=== PATIENT | male | born 1965 | race Caucasian/White ===

== ENCOUNTER 2024-01-30 05:57 | Emergency (ER) | payer OTHER, SELFPAY ==
[2024-01-30] VITALS (10 sets, daily range): BP systolic 137–165; BP diastolic 67–78; PULSE 52–84; RESP 12–22; TEMP 36.5–36.8; O2SAT 95–100; BMI 23.1; BMI 21.9
--- NOTE | 2024-01-30 | ECG_ITS ---
Test Reason : CHEST PAIN Blood Pressure : / mmHG Vent. Rate : 078 BPM Atrial Rate : 078 BPM P-R Int : 134 ms QRS Dur : 108 ms QT Int : 386 ms P-R-T Axes : 065 074 260 degrees QTc Int : 440 ms Sinus rhythm with occasional Premature ventricular complexes and Premature atrial complexes Cannot rule out Anterior infarct , age undetermined Marked ST abnormality, possible inferior subendocardial injury - can also be from LVH. Abnormal ECG No previous ECGs available Referred By: Generic ED Physician Electronically Signed By:MILLY JEONG
--- NOTE | ~2024-01-30 | XR_ITS ---
EXAMINATION: XR CHEST CLINICAL INFORMATION: Chest pain. COMPARISON: None available. TECHNIQUE: Frontal view of the chest was obtained. FINDINGS: The cardiomediastinal silhouette is within normal limits. There appears to be minimal right middle lobe scarring. Lungs are otherwise clear. There are significant pleural effusions. The bony structures and the soft tissues are unremarkable. XR/XR chest 1V IMPRESSION: No acute cardiopulmonary disease. Electronically signed by: Brady Barboza MD 01/30/2024 07:08 AM EDT
--- NOTE | 2024-01-30 06:09 | ED.CHESTPAIN ---
HPI - Chest Pain General Chief Complaint: Chest Pain Stated Complaint: CHEST PAIN Time Seen by Provider: 01/30/24 06:00 Source: patient and EMS Mode of arrival: EMS Limitations: no limitations History of Present Illness HPI narrative: This is a very pleasant 58 years old male visiting from history presented to the emergency department with a chief complaint of chest pain. He has history of CAD he has a stent of the LAD and right coronary artery he also has history of kidney transplant, hypertension hypercholesterolemia. He states that he has been having chest pain on and off since last night at 21:00 described as a pressure without radiation, he took few nitro and aspirin. He received by the ambulance about 70 mcg of fentanyl. His pain is better month no completely gone. MD complaint: chest pain Pertinent past history: coronary artery disease, prior [employer] and [employer] Onset (ago): day(s) (8) Prior episodes: Yes Onset: during rest Pain location: substernal and left chest Pain radiation: none Quality: heaviness Relieving factors: nothing Exacerbating factors: nothing Risk Factors Coronary artery disease risk factors: diabetes and hypertension Related Data Home Medications ?Medication ?Instructions ?Recorded ?Confirmed amlodipine 5 mg tablet 5 mg PO DAILY 01/30/24 01/30/24 aspirin 81 mg tablet,delayed 81 mg PO DAILY 01/30/24 01/30/24 release carvedilol 3.125 mg tablet 3.125 mg PO BID 01/30/24 01/30/24 diphenhydramine HCl 25 mg capsule 25 mg PO BEDTIME PRN Allergy 01/30/24 01/30/24 (Benadryl) Symptoms famotidine 20 mg tablet 20 mg PO DAILY 01/30/24 01/30/24 insulin glargine 100 unit/mL 18 unit subcut DAILY 01/30/24 01/30/24 subcutaneous solution (Lantus U-100 Insulin) insulin lispro 100 unit/mL 3 - 5 sliding scale dose subcut 01/30/24 01/30/24 subcutaneous solution (Humalog TIDWM U-100 Insulin) losartan 50 mg tablet 50 mg PO DAILY 01/30/24 01/30/24 mycophenolate sodium 360 mg 360 mg PO DAILY 01/30/24 01/30/24 tablet,delayed release nitroglycerin 0.4 mg sublingual 0.4 mg sublingual Q5M PRN Chest 01/30/24 01/30/24 tablet Pain paroxetine HCl 20 mg tablet 20 mg PO DAILY 01/30/24 01/30/24 prednisone 5 mg tablet 5 mg PO DAILY 01/30/24 01/30/24 tacrolimus 1 mg capsule, 1 mg PO BEDTIME 01/30/24 01/30/24 immediate-release tacrolimus 1 mg capsule, 2 mg PO DAILY 01/30/24 01/30/24 immediate-release Allergies Allergy/AdvReac Type Severity Reaction Status Date / Time Sulfa (Sulfonamide Allergy Unknown Verified 01/30/24 06:11 Antibiotics) Review of Systems ENT: Reports system reviewed and no additional complaints, except as documented Cardiovascular: Cardiovascular: Reports no additional cardiovascular complaints Respiratory: Respiratory: Reports no additional respiratory complaints Musculoskeletal: Musculoskeletal: Reports no additional musculoskeletal complaints [facility] Past Medical History [facility] Narrative: CAD, stent of the right coronary and LAD. Kidney transplant 10 years ago. Hypertension, diabetes hypercholesterolemia Medical History (Updated 02/01/24 @ 00:02 by Nicci Orellana) Coronary artery disease Surgical History (Updated 01/30/24 @ 09:54 by Shawn Fischer MD) Kidney replaced by transplant Social History Social History (Updated 01/30/24 @ 06:12 by Jose Antonio Melara MD) Patient Tobacco Use Status: Never used Tobacco Physical Exam Vital Signs: Vital Signs: Last Vital Signs Temp 97.9 F 01/31/24 05:52 Pulse 70 01/31/24 05:52 Resp 20 01/31/24 05:52 BP 132/62 01/31/24 05:52 Pulse Ox 96 01/31/24 05:52 O2 Del Method Room Air 01/31/24 05:52 BMI result Body Mass Index 21.9 He looks well is not toxic-appearing Const: General: cooperative, comfortable and no acute distress Nutritional Appearance: well nourished Orientation/consciousness: patient oriented x3 HEENT: Head: Yes normal to inspection Face and sinus: Yes normal facial exam Mouth: Normal oral and palatal mucosa present Neck: Neck: Yes normal visual inspection Chest: Chest palpation & inspection: normal inspection of the chest Resp: Effort & Inspection: normal respiratory effort Auscultation: clear to auscultation bilaterally Cardio: Jugular venous distension: no JVD Rate: regular rate Rhythm: regular rhythm GI: Inspection: Yes normal to inspection Palpation (GI): Soft to palpation, not firm, nontender and no guarding Auscultation: normal bowel sounds Skin: General skin exam: no rashes or lesions noted, elasticity normal and turgor normal Lesions: no lesions Rashes: no rashes Trauma: no lacerations or abrasions Neuro: General: patient oriented x3 Cranial nerves: Yes CN's II-XII intact bilaterally Extrem: General: Yes normal to inspection and Yes capillary refill normal Course Reevaluation(s) Reevaluation #1: doing better seen by custom bike builder in ED,spoke with hospitalist Time: 09:54 Reevaluation #2: Patient was accepted in transfer to [facility] by Dr. Goldstein waiting for bed Time: 13:09 Reevaluation #3: I assumed care of this patient when I came on this evening. The patient had presented on the morning of SundayJanuary 29 complaining of chest discomfort. He has a history of coronary disease and stents. He also is a renal transplant patient. The patient is from [place]. He and his have been driving around the [facility] during. He had developed pain at around 21:00 on Sunday evening before coming here yesterday morning at around 05:00. The patient had had an initial troponin of 19.6 at 06:15 and then a troponin of 123 at 09:42. His EKG showed ST abnormalities potentially consistent with inferior subendocardial injury or LVH. His pain resolved after receiving nitroglycerin and fentanyl. He was placed on a heparin drip. The plan was to transfer him to [facility] for further care. The patient has been accepted in transfer and was expected to go fairly soon but there was a lack of beds and so the patient was kept in the emergency room here. He was on a heparin drip. When I 1st saw the patient he was pain-free. He has been resting comfortably. Sometime after that he was found to be hypoglycemic (he had received his usual dose of insulin earlier in the evening). He was given food to eat as well as some IV glucose. Early this morning the patient complains of return of his chest pain that he describes as his anginal pain. We obtained an EKG at 03:25 which for the most part looks better than his previous EKG although the lead in V6 shows biphasic T-waves. The patient will be given nitroglycerin and fentanyl. Time: 03:42 Additional Reevaluation(s): Although the patient's chest pain resolved with the additional nitroglycerin paste and a dose of fentanyl his troponin is gone up to 1500 and his EKG shows a change in the angle of the J-point in V4. I re-contacted [facility] and spoke to the covering custom bike builder Dr. Chadwikc. They have arranged a bed for the patient and the patient will be transferred by ambulance. Medications Administered Discontinued Medications Generic Name Dose Route Start Last Admin Trade Name Sara PRN Reason Stop Dose Admin Acetaminophen 975 mg 01/31/24 05:00 01/31/24 05:06 Acetaminophen 325 Mg Tablet PO 01/31/24 05:01 975 mg ONCE ONE Administration Aspirin 324 mg 01/30/24 10:46 01/30/24 10:59 Aspirin 81 Mg Tab.Chew PO 01/30/24 10:47 324 mg ONCE ONE Administration Atorvastatin Calcium 40 mg 01/30/24 10:46 01/30/24 10:58 Atorvastatin Calcium 40 Mg Tablet PO 01/30/24 10:47 40 mg ONCE ONE Administration Carvedilol 3.125 mg 01/30/24 21:00 01/30/24 21:20 Carvedilol 3.125 Mg Tablet PO Not Given BID CROW Protocol Fentanyl 25 mcg 01/30/24 06:15 01/30/24 06:47 Fentanyl Citrate/Pf 100 Mcg/2 Ml Vial IVPUSH 01/30/24 06:16 25 mcg ONCE ONE Administration Protocol Fentanyl 25 mcg 01/30/24 08:25 01/30/24 08:50 Fentanyl Citrate/Pf 100 Mcg/2 Ml Vial IVPUSH 01/30/24 08:26 25 mcg ONCE ONE Administration Protocol Fentanyl 25 mcg 01/31/24 03:37 01/31/24 03:41 Fentanyl Citrate/Pf 100 Mcg/2 Ml Vial IVPUSH 01/31/24 03:38 25 mcg ONCE ONE Administration Protocol Glucose 15 gm 01/31/24 00:35 01/31/24 00:54 Glucose Gel 15 Gm Gel..Gram. PO 01/31/24 00:36 Not Given STAT STA Heparin Sodium (Porcine) 4,000 unit 01/30/24 09:15 01/30/24 09:20 Heparin Sodium,Porcine 5,000 Unit/Ml Vial IVPUSH 01/30/24 09:16 4,000 unit ONCE ONE Administration Heparin Sodium/Sodium Chloride 25,000 unit in 250 mls @ 0 mls/hr 01/30/24 08:45 01/31/24 05:35 Heparin Sodium,Porcine/1/2ns IVCONT 0 units/kg/hr .Q0M [facility] 0 mls/hr Titration Protocol Per Protocol Dextrose 250 mls @ 750 mls/hr 01/31/24 00:35 01/31/24 01:05 D10 IV 01/31/24 00:54 Infused Q15M STA Infusion Insulin Human Lispro 0 unit 01/30/24 16:30 01/30/24 21:14 Insulin Lispro 100 Unit/Ml 3 Ml Vial SUBCUT Not Given [facility] Protocol Insulin Human Lispro 0 unit 01/30/24 21:00 01/30/24 21:20 Insulin Lispro 100 Unit/Ml 3 Ml Vial SUBCUT 6 unit QIDAS [facility] Administration Protocol Metoprolol Tartrate 25 mg 01/30/24 10:46 01/30/24 10:58 Metoprolol Tartrate 25 Mg Tablet PO 01/30/24 10:47 25 mg ONCE ONE Administration Protocol Nitroglycerin 0.4 mg 01/30/24 06:15 01/30/24 06:46 Nitroglycerin 0.4 Mg Tab.Subl SUBLINGUAL 01/30/24 06:16 0.4 mg ONCE ONE Administration Nitroglycerin 1 inch 01/31/24 03:32 01/31/24 03:35 Nitroglycerin 2 % Oint 1 Gm Packet TRANSDERMA 01/31/24 03:33 1 inch ONCE ONE Administration Tacrolimus 1 mg 01/30/24 21:00 01/30/24 21:21 Tacrolimus 1 Mg Capsule PO 1 mg BEDTIME [facility] Administration Medical Decision Making Medical Decision Making [facility] Narrative: Patient presented with chest pain he has history of CAD with LAD stent and right coronary stent, will do electrocardiogram, troponin, chest x-ray Differential Diagnosis Differential Diagnoses: The differential diagnosis associated with the presentation includes ACS/pericarditis/STEMI Admission/Observation Consideration of admission/observation: Escalation of care including admission/observation considered Lab Data 01/31/24 05:04 01/30/24 06:15 Labs: Lab Results 01/30/24 01/30/24 01/30/24 Range/Units 06:15 08:59 09:42 WBC 4.5 L 4.7 L (4.8-10.8) X10*3/uL RBC 3.06 L 3.11 L (4.60-5.80) X10*6/uL Hgb 8.7 L 8.9 L (14.0-18.0) g/dl Hct 27.3 L 27.6 L (42.0-52.0) % MCV 89.2 88.7 (80.0-98.0) fL MCH 28.4 28.6 (27.0-33.0) pg MCHC 31.9 32.2 (31.0-36.0) g/dl RDW 13.0 12.9 (11.0-16.0) % Plt Count 132 L 133 L (160-400) X10*3/uL MPV 10.4 10.9 (9.4-12.4) fL Immature Gran % (Auto) 0.2 (0.0-0.4) % Neut % (Auto) 72.4 (45-73) % Lymph % (Auto) 10.5 L (20-40) % Swisher % (Auto) 13.8 H (2-11) % Eos % (Auto) 2.9 (0-4) % Baso % (Auto) 0.2 (0-2) % Lymph # (Auto) 0.5 L (1.2-4.9) X10*3/uL Swisher # (Auto) 0.6 (0.1-1.2) X10*3/uL Eos # (Auto) 0.1 (0.0-0.4) X10*3/uL Baso # (Auto) 0.0 (0.0-0.2) X10*3/uL Abs Immat Gran (auto) 0.01 (0.00-0.03) X10*3/uL Absolute Neuts (auto) 3.3 (2.0-8.3) x10*3/uL Absolute Nucleated RBC 0.000 0.000 (0.0-0.012) X10*3/uL Nucleated RBC % (auto) 0.0 0.0 (0.0-0.2) /100WBC PT 11.9 11.8 (10.9-12.4) SEC INR 1.0 1.0 (0.9-1.1) aPTT Heparin Protocol 30.1 L (53-77.9) SEC Sodium 138 (135-145) mmol/L Potassium 4.9 (3.3-5.1) mmol/L Chloride 110 H (96-108) mmol/L Carbon Dioxide 22 (22-29) mmol/L Anion Gap 11 L (12-20) BUN 52 H (9-16) mg/dL Creatinine 2.62 H (0.5-1.4) mg/dL Estim Creat Clear Calc 32.1 Estimated GFR 25 POC Glucose (60-115) mg/dL Random Glucose 283 H (60-115) mg/dL Calcium 8.5 (8.4-10.2) mg/dL Total Bilirubin 0.2 (0.0-1.0) mg/dL AST 16 (5-37) U/L ALT 14 (0-40) U/L Alkaline Phosphatase 53 (39-117) U/L Troponin I High Sens 19.6 123.4 H* D (<3.5-35.0) ng/L Total Protein 5.4 L (6.5-8.0) g/dL Albumin 3.4 L (3.5-5.0) g/dL 01/30/24 01/30/24 01/30/24 Range/Units 10:52 16:26 19:26 WBC (4.8-10.8) X10*3/uL RBC (4.60-5.80) X10*6/uL Hgb (14.0-18.0) g/dl Hct (42.0-52.0) % MCV (80.0-98.0) fL MCH (27.0-33.0) pg MCHC (31.0-36.0) g/dl RDW (11.0-16.0) % Plt Count (160-400) X10*3/uL MPV (9.4-12.4) fL Immature Gran % (Auto) (0.0-0.4) % Neut % (Auto) (45-73) % Lymph % (Auto) (20-40) % Swisher % (Auto) (2-11) % Eos % (Auto) (0-4) % Baso % (Auto) (0-2) % Lymph # (Auto) (1.2-4.9) X10*3/uL Swisher # (Auto) (0.1-1.2) X10*3/uL Eos # (Auto) (0.0-0.4) X10*3/uL Baso # (Auto) (0.0-0.2) X10*3/uL Abs Immat Gran (auto) (0.00-0.03) X10*3/uL Absolute Neuts (auto) (2.0-8.3) x10*3/uL Absolute Nucleated RBC (0.0-0.012) X10*3/uL Nucleated RBC % (auto) (0.0-0.2) /100WBC PT (10.9-12.4) SEC INR (0.9-1.1) aPTT Heparin Protocol 87.5 H D (53-77.9) SEC Sodium (135-145) mmol/L Potassium (3.3-5.1) mmol/L Chloride (96-108) mmol/L Carbon Dioxide (22-29) mmol/L Anion Gap (12-20) BUN (9-16) mg/dL Creatinine (0.5-1.4) mg/dL Estim Creat Clear Calc Estimated GFR POC Glucose 171 H 349 H (60-115) mg/dL Random Glucose (60-115) mg/dL Calcium (8.4-10.2) mg/dL Total Bilirubin (0.0-1.0) mg/dL AST (5-37) U/L ALT (0-40) U/L Alkaline Phosphatase (39-117) U/L Troponin I High Sens (<3.5-35.0) ng/L Total Protein (6.5-8.0) g/dL Albumin (3.5-5.0) g/dL 01/30/24 01/30/24 01/31/24 Range/Units 21:05 22:35 00:17 WBC (4.8-10.8) X10*3/uL RBC (4.60-5.80) X10*6/uL Hgb (14.0-18.0) g/dl Hct (42.0-52.0) % MCV (80.0-98.0) fL MCH (27.0-33.0) pg MCHC (31.0-36.0) g/dl RDW (11.0-16.0) % Plt Count (160-400) X10*3/uL MPV (9.4-12.4) fL Immature Gran % (Auto) (0.0-0.4) % Neut % (Auto) (45-73) % Lymph % (Auto) (20-40) % Swisher % (Auto) (2-11) % Eos % (Auto) (0-4) % Baso % (Auto) (0-2) % Lymph # (Auto) (1.2-4.9) X10*3/uL Swisher # (Auto) (0.1-1.2) X10*3/uL Eos # (Auto) (0.0-0.4) X10*3/uL Baso # (Auto) (0.0-0.2) X10*3/uL Abs Immat Gran (auto) (0.00-0.03) X10*3/uL Absolute Neuts (auto) (2.0-8.3) x10*3/uL Absolute Nucleated RBC (0.0-0.012) X10*3/uL Nucleated RBC % (auto) (0.0-0.2) /100WBC PT (10.9-12.4) SEC INR (0.9-1.1) aPTT Heparin Protocol 77.0 (53-77.9) SEC Sodium (135-145) mmol/L Potassium (3.3-5.1) mmol/L Chloride (96-108) mmol/L Carbon Dioxide (22-29) mmol/L Anion Gap (12-20) BUN (9-16) mg/dL Creatinine (0.5-1.4) mg/dL Estim Creat Clear Calc Estimated GFR POC Glucose 292 H 44 L* (60-115) mg/dL Random Glucose (60-115) mg/dL Calcium (8.4-10.2) mg/dL Total Bilirubin (0.0-1.0) mg/dL AST (5-37) U/L ALT (0-40) U/L Alkaline Phosphatase (39-117) U/L Troponin I High Sens (<3.5-35.0) ng/L Total Protein (6.5-8.0) g/dL Albumin (3.5-5.0) g/dL 01/31/24 01/31/24 01/31/24 Range/Units 00:32 00:49 01:38 WBC (4.8-10.8) X10*3/uL RBC (4.60-5.80) X10*6/uL Hgb (14.0-18.0) g/dl Hct (42.0-52.0) % MCV (80.0-98.0) fL MCH (27.0-33.0) pg MCHC (31.0-36.0) g/dl RDW (11.0-16.0) % Plt Count (160-400) X10*3/uL MPV (9.4-12.4) fL Immature Gran % (Auto) (0.0-0.4) % Neut % (Auto) (45-73) % Lymph % (Auto) (20-40) % Swisher % (Auto) (2-11) % Eos % (Auto) (0-4) % Baso % (Auto) (0-2) % Lymph # (Auto) (1.2-4.9) X10*3/uL Swisher # (Auto) (0.1-1.2) X10*3/uL Eos # (Auto) (0.0-0.4) X10*3/uL Baso # (Auto) (0.0-0.2) X10*3/uL Abs Immat Gran (auto) (0.00-0.03) X10*3/uL Absolute Neuts (auto) (2.0-8.3) x10*3/uL Absolute Nucleated RBC (0.0-0.012) X10*3/uL Nucleated RBC % (auto) (0.0-0.2) /100WBC PT (10.9-12.4) SEC INR (0.9-1.1) aPTT Heparin Protocol (53-77.9) SEC Sodium (135-145) mmol/L Potassium (3.3-5.1) mmol/L Chloride (96-108) mmol/L Carbon Dioxide (22-29) mmol/L Anion Gap (12-20) BUN (9-16) mg/dL Creatinine (0.5-1.4) mg/dL Estim Creat Clear Calc Estimated GFR POC Glucose 30 L* 225 H 143 H (60-115) mg/dL Random Glucose (60-115) mg/dL Calcium (8.4-10.2) mg/dL Total Bilirubin (0.0-1.0) mg/dL AST (5-37) U/L ALT (0-40) U/L Alkaline Phosphatase (39-117) U/L Troponin I High Sens (<3.5-35.0) ng/L Total Protein (6.5-8.0) g/dL Albumin (3.5-5.0) g/dL 01/31/24 01/31/24 01/31/24 Range/Units 02:07 03:46 05:04 WBC 5.8 (4.8-10.8) X10*3/uL RBC 3.33 L (4.60-5.80) X10*6/uL Hgb 9.6 L (14.0-18.0) g/dl Hct 29.5 L (42.0-52.0) % MCV 88.6 (80.0-98.0) fL MCH 28.8 (27.0-33.0) pg MCHC 32.5 (31.0-36.0) g/dl RDW 13.2 (11.0-16.0) % Plt Count 139 L (160-400) X10*3/uL MPV 10.8 (9.4-12.4) fL Immature Gran % (Auto) (0.0-0.4) % Neut % (Auto) (45-73) % Lymph % (Auto) (20-40) % Swisher % (Auto) (2-11) % Eos % (Auto) (0-4) % Baso % (Auto) (0-2) % Lymph # (Auto) (1.2-4.9) X10*3/uL Swisher # (Auto) (0.1-1.2) X10*3/uL Eos # (Auto) (0.0-0.4) X10*3/uL Baso # (Auto) (0.0-0.2) X10*3/uL Abs Immat Gran (auto) (0.00-0.03) X10*3/uL Absolute Neuts (auto) (2.0-8.3) x10*3/uL Absolute Nucleated RBC 0.000 (0.0-0.012) X10*3/uL Nucleated RBC % (auto) 0.0 (0.0-0.2) /100WBC PT 12.8 H (10.9-12.4) SEC INR 1.1 (0.9-1.1) aPTT Heparin Protocol 137.6 H* D (53-77.9) SEC Sodium (135-145) mmol/L Potassium (3.3-5.1) mmol/L Chloride (96-108) mmol/L Carbon Dioxide (22-29) mmol/L Anion Gap (12-20) BUN (9-16) mg/dL Creatinine (0.5-1.4) mg/dL Estim Creat Clear Calc Estimated GFR POC Glucose 146 H (60-115) mg/dL Random Glucose (60-115) mg/dL Calcium (8.4-10.2) mg/dL Total Bilirubin (0.0-1.0) mg/dL AST (5-37) U/L ALT (0-40) U/L Alkaline Phosphatase (39-117) U/L Troponin I High Sens 86300.9 H* D (<3.5-35.0) ng/L Total Protein (6.5-8.0) g/dL Albumin (3.5-5.0) g/dL Independent Interpretation I performed an independent interpretation of an: EKG Interpretation: Electrocardiogram was reviewed interpreted by me as normal sinus rhythm rate 78 to PVCs in the tracing inverted T-wave in lead V4 V5 V6 no prior EKG available Critical Care Time Critical Care Time Critical Care Time: Yes Total Critical Care Time: 90 Attestation: talking to EMS/tachyng care of the pt,speaking to custom bike builder and hospitalist,IV heparin/IV fentanyl/nitro Discharge Plan Discharge Clinical Impression: Acute non-ST elevation myocardial infarction (NSTEMI) Patient Disposition: Xfer Acute Care Hospital Transfer Details: [facility] Prescriptions: No Action losartan 50 mg tablet 50 mg PO DAILY insulin glargine [Lantus U-100 Insulin] 100 unit/mL solution 18 unit subcut DAILY prednisone 5 mg tablet 5 mg PO DAILY amlodipine 5 mg tablet 5 mg PO DAILY aspirin 81 mg tablet,delayed release (DR/EC) 81 mg PO DAILY carvedilol 3.125 mg tablet 3.125 mg PO BID famotidine 20 mg tablet 20 mg PO DAILY paroxetine HCl 20 mg tablet 20 mg PO DAILY nitroglycerin 0.4 mg tablet, sublingual 0.4 mg sublingual Q5M MDD 3 doses PRN (Reason: Chest Pain) insulin lispro [Humalog U-100 Insulin] 100 unit/mL solution 3 - 5 sliding scale dose subcut TIDWM Protocol: Insulin Correction Scale Less than or equal to 110 ---- Give (units): 0 111 to 150 Give (units): 0 151 to 200 Give (units): 2 201 to 250 Give (units): 4 251 to 300 Give (units): 6 301 to 350 Give (units): 8 Greater than 350 Give (units): 10 Call MD if Blood Glucose > : 350 Rx Instructions: 3-5 units tacrolimus 1 mg capsule 2 mg PO DAILY mycophenolate sodium 360 mg tablet,delayed release (DR/EC) 360 mg PO DAILY tacrolimus 1 mg capsule 1 mg PO BEDTIME diphenhydramine HCl [Benadryl] 25 mg Capsule 25 mg PO BEDTIME PRN (Reason: Allergy Symptoms) Interventions: Acute Care Transfer Worksheet (ED) Last Done: 01/31/24 05:52 Discharge Date/Time: 01/31/24 05:59 Print Language: Greenlandic
[2024-01-30 06:20] LABS: MANUAL DIFF FLAG NO
[2024-01-30 06:21] LABS: Basophils Percent Auto 0.2 % (0-2); Eosinophils Absolute Auto 0.1 X10*3/uL (0.0-0.4); Eosinophils Percent Auto 2.9 % (0-4); Hematocrit 27.3 % (42.0-52.0); Hemoglobin 8.7 g/dl (14.0-18.0); Imm Gran Abs Auto 0.01 X10*3/uL (0.00-0.03); Imm Gran Pct Auto 0.2 % (0.0-0.4); Lymphocytes Absolute Auto 0.5 X10*3/uL (1.2-4.9); Lymphocytes Percent Auto 10.5 % (20-40); Mean Corpuscular HGB Conc 31.9 g/dl (31.0-36.0); Mean Corpuscular Hemoglobin 28.4 pg (27.0-33.0); Mean Corpuscular Volume 89.2 fL (80.0-98.0); Mean Platelet Volume 10.4 fL (9.4-12.4); Monocytes Absolute Auto 0.6 X10*3/uL (0.1-1.2); Monocytes Percent Auto 13.8 % (2-11); Neutrophils Absolute Auto 3.3 x10*3/uL (2.0-8.3); Neutrophils Percent Auto 72.4 % (45-73); Platelet Count 132 X10*3/uL (160-400); Red Blood Count 3.06 X10*6/uL (4.60-5.80); White Blood Count 4.5 X10*3/uL (4.8-10.8)
[2024-01-30 06:26] LABS: Prothrombin Time 11.9 SEC (10.9-12.4)
[2024-01-30 06:33] LABS: Alanine Aminotransferase 14 U/L (0-40); Albumin Level 3.4 g/dL (3.5-5.0); Alkaline Phosphatase 53 U/L (39-117); Anion Gap 11 (12-20); Aspartate Amino Transferase 16 U/L (5-37); Bilirubin Total 0.2 mg/dL (0.0-1.0); Blood Urea Nitrogen 52 mg/dL (9-16); Calcium 8.5 mg/dL (8.4-10.2); Carbon Dioxide 22 mmol/L (22-29); Chloride 110 mmol/L (96-108); Creatinine Clr Calc Pharmacy 32.1; Estimated Glomerular Filt Rate 25; Glucose Random 283 mg/dL (60-115); Potassium 4.9 mmol/L (3.3-5.1); Sodium 138 mmol/L (135-145); Total Protein 5.4 g/dL (6.5-8.0)
[2024-01-30 06:41] LABS: Troponin-I High Sensitivity 19.6 ng/L (<3.5-35.0)
[2024-01-30] MEDS: Nitroglycerin 0.4 MG TAB.SUBL SUBLINGUAL (06:46)
[2024-01-30] MEDS: fentaNYL citrate/PF 100 MCG/2 ML VIAL 25 MCG IVPUSH ×2 (06:47→08:50)
[2024-01-30 09:08] LABS: Hematocrit 27.6 % (42.0-52.0); Hemoglobin 8.9 g/dl (14.0-18.0); Mean Corpuscular HGB Conc 32.2 g/dl (31.0-36.0); Mean Corpuscular Hemoglobin 28.6 pg (27.0-33.0); Mean Corpuscular Volume 88.7 fL (80.0-98.0); Mean Platelet Volume 10.9 fL (9.4-12.4); Platelet Count 133 X10*3/uL (160-400); Red Blood Count 3.11 X10*6/uL (4.60-5.80); Red Cell Distribution Width 12.9 % (11.0-16.0); White Blood Count 4.7 X10*3/uL (4.8-10.8)
[2024-01-30 09:19] LABS: Prothrombin Time 11.8 SEC (10.9-12.4)
[2024-01-30] MEDS: Heparin Sodium,Porcine/1/2NS 25,000 UNIT/250 ML IV.SOLN 9.69 UNIT IVCONT (09:19)
[2024-01-30] MEDS: Heparin Sodium,Porcine 5,000 UNIT/ML VIAL 4000 UNIT IVPUSH (09:20)
[2024-01-30 09:22] LABS: PTT Heparin Drip 30.1 SEC (53-77.9)
--- NOTE | 2024-01-30 09:50 | PM.CNCAR ---
History of Present Illness History of Present Illness Date of Service: 01/30/24 Chief complaint: CHEST PAIN Narrative: This is a cardiology consultation regarding angina. Patient with known coronary artery disease and he has a history of coronary stents. LAD stent in 2013 and RCA stent in 2021. He also has a history of kidney transplant. He states that he is visiting here from [place]. Last night around 5-6 p.m. he started noticing some angina but then it resolved by itself. However, it started happening again at around 22:00 and he had recurring episodes. He tried several nitros and did not help and hence came to the ER. After that, it seems he got fentanyl and the pain was completely resolved after that. Currently, he is symptom-free. However because of requiring multiple episodes of nitroglycerin and history of multivessel CAD we have been asked to see him. Patient states that he does get angina with slightly increasing frequency over the last few months. However, he has not had any recent stress test or cardiac catheterization. Last catheterization seems to be 2021. Review of Systems Review of Systems: Yes all other systems are reviewed and are negative Constitutional: Constitutional: Reports as per HPI and Reports no additional constitutional complaints Eyes: Eyes: Reports as per HPI and Denies no additional eye complaints ENT: Denies system reviewed and no additional complaints, except as documented and Reports as per HPI Cardiovascular: Cardiovascular: Reports as per HPI, Reports no additional cardiovascular complaints, Denies acrocyanosis, Denies cool extremities, Reports chest pain, Denies leg edema, Denies lightheadedness, Denies palpitations and Denies dyspnea Respiratory: Respiratory: Reports as per HPI, Denies no additional respiratory complaints and Denies dyspnea Gastrointestinal: Gastrointestinal: Reports as per HPI and Denies no additional gastrointestinal complaints Genitourinary: Genitourinary: Reports no additional male genitourinary complaints and Reports as per HPI Musculoskeletal: Musculoskeletal: Reports no additional musculoskeletal complaints and Reports as per HPI Integumentary/Breasts: Skin/Breast: Reports system reviewed and no additional complaints, except as docu Neurologic: Reports system reviewed and no additional complaints, except as documented and Reports as per HPI Psychiatric: Psychiatric: Reports no additional psychiatric complaints and Reports as per HPI Endocrine: Endocrine: Reports no additional endocrine complaints, Reports as per HPI and Denies palpitations Hematologic/Lymphatic: Hematologic/Lymphatic: Reports no additional hematologic/lymphatic complaints and Reports as per HPI Allergic/Immunologic: Allergic/Immunologic: Reports no additional allergic/immunologic complaints and Reports as per HPI [facility] Past Medical History Medical History (Updated 01/30/24 @ 09:55 by Shawn Fishcer MD) Coronary artery disease Family History Pertinent family history: Patient does not know family history as he is adopted. Surgical History Surgical History (Updated 01/30/24 @ 09:54 by Shawn Fischer MD) Kidney replaced by transplant Social History Social History (Updated 01/30/24 @ 06:12 by Jose Antonio Melara MD) Patient Tobacco Use Status: Never used Tobacco Smoked in Last 30 Days: No Use of substances other than those prescribed or required for medical reasons: No Advance Directives: No Meds Allergies Allergy/AdvReac Type Severity Reaction Status Date / Time Sulfa (Sulfonamide Allergy Unknown Verified 01/30/24 06:11 Antibiotics) Active Medications: Current Medications Heparin Sodium (Porcine) (Heparin Sodium,Porcine 5,000 Unit/Ml Vial) 2,800 unit 40 unit/kg (2800 unit) IVPUSH PROTOCOL BOLUS PRN; Protocol PRN Reason: 40 unit/kg - Heparin Protocol Heparin Sodium (Porcine) (Heparin Sodium,Porcine 5,000 Unit/Ml Vial) 5,500 unit 80 unit/kg (5500 unit) IVPUSH PROTOCOL BOLUS PRN; Protocol PRN Reason: 80 unit/kg - Heparin Protocol Heparin Sodium/Sodium Chloride (Heparin Sodium,Porcine/1/2ns) 25,000 unit in 250 mls @ 0 mls/hr IVCONT .[facility]M [facility]; Protocol Last Admin: 01/30/24 09:19 Dose: 14 units/kg/hr, 9.69 mls/hr Home Medications ?Medication ?Instructions ?Recorded ?Confirmed ?Last Taken ?Type amlodipine 5 mg tablet 5 mg PO DAILY 01/30/24 Unknown History aspirin 81 mg tablet,delayed 81 mg PO DAILY 01/30/24 Unknown History release carvedilol 3.125 mg tablet 3.125 mg PO BID 01/30/24 Unknown History famotidine 20 mg tablet 20 mg PO DAILY 01/30/24 Unknown History glucagon 1 mg/0.2 mL subcutaneous 1 mg subcut DIRECTED 01/30/24 Unknown History auto-injector (GvStackBlaze HypoPen 2-Pack) insulin glargine 100 unit/mL See Protocol subcut DAILY 01/30/24 Unknown History subcutaneous solution (Lantus U-100 Insulin) insulin lispro 100 unit/mL See Protocol subcut DAILY 01/30/24 Unknown History subcutaneous solution (Humalog U-100 Insulin) losartan 50 mg tablet 50 mg PO DAILY 01/30/24 Unknown History mycophenolate sodium 360 mg 360 mg PO DAILY 01/30/24 Unknown History tablet,delayed release nitroglycerin 0.4 mg sublingual 0.4 mg sublingual Q5M 01/30/24 Unknown History tablet paroxetine HCl 20 mg tablet 20 mg PO DAILY 01/30/24 Unknown History prednisone 5 mg tablet 5 mg PO DAILY 01/30/24 Unknown History tacrolimus 1 mg capsule, 1 mg PO DIRECTED 01/30/24 Unknown History immediate-release Physical Exam Vital Signs: Vital Signs: Last Vital Signs Temp 98.2 F 01/30/24 07:54 Pulse 74 01/30/24 09:24 Resp 16 01/30/24 09:24 BP 145/72 H 01/30/24 09:24 Pulse Ox 97 01/30/24 09:24 O2 Del Method Room Air 01/30/24 09:24 BMI result Body Mass Index 21.9 Const: General: comfortable and no acute distress Orientation/consciousness: patient oriented x3 HEENT: Other: Unremarkable Head: Yes normal to inspection Neck: Neck: Yes normal visual inspection Chest: Chest palpation & inspection: normal inspection of the chest Resp: Auscultation: clear to auscultation bilaterally Cardio: Palpation: normal PMI Heart sounds: S1 normal heart sound present, S2 normal heart sound present, no gallops, no murmurs and no rubs GI: Palpation (GI): Soft to palpation Back/Spine/Pelvis: Other: unremarkable Skin: General skin exam: no rashes or lesions noted Neuro: General: patient oriented x3 Extrem: General: Yes normal to inspection Psych: Mental Status: mental status grossly normal Objective Labs and Meds 01/30/24 08:59 01/30/24 06:15 Lab results: Laboratory Results - last 24 hr 01/30/24 01/30/24 06:15 08:59 WBC 4.5 L 4.7 L RBC 3.06 L 3.11 L Hgb 8.7 L 8.9 L Hct 27.3 L 27.6 L MCV 89.2 88.7 MCH 28.4 28.6 MCHC 31.9 32.2 RDW 13.0 12.9 Plt Count 132 L 133 L MPV 10.4 10.9 Immature Gran % (Auto) 0.2 Neut % (Auto) 72.4 Lymph % (Auto) 10.5 L [place] % (Auto) 13.8 H Eos % (Auto) 2.9 Baso % (Auto) 0.2 Lymph # (Auto) 0.5 L [place] # (Auto) 0.6 Eos # (Auto) 0.1 Baso # (Auto) 0.0 Abs Immat Gran (auto) 0.01 Absolute Neuts (auto) 3.3 Absolute Nucleated RBC 0.000 0.000 Nucleated RBC % (auto) 0.0 0.0 PT 11.9 11.8 INR 1.0 1.0 aPTT Heparin Protocol 30.1 L Sodium 138 Potassium 4.9 Chloride 110 H Carbon Dioxide 22 Anion Gap 11 L BUN 52 H Creatinine 2.62 H Estim Creat Clear Calc 32.1 Estimated GFR 25 Random Glucose 283 H Calcium 8.5 Total Bilirubin 0.2 AST 16 ALT 14 Alkaline Phosphatase 53 Troponin I High Sens 19.6 Total Protein 5.4 L Albumin 3.4 L ECG Interpretation: EKG shows underlying sinus rhythm at 78/Min; inferior and anterolateral ST depression with T inversions that could be from LVH but can not exclude ischemia. PVCs. Imaging Radiologist's impression: Impressions Chest X-Ray 01/30/24 06:20 IMPRESSION: No acute cardiopulmonary disease. Electronically signed by: Brady Barboza MD 01/30/2024 07:08 AM EDT RP Assessment and Plan (1) Unstable angina: Status: Acute Plan 1st troponin is 19.6. Within range. Second troponin is pending. EKG as above. LVH versus ischemia. Renal function is abnormal. BUN is 52 and creatinine is 2.6. At this time, history suggestive of unstable angina as he required multiple nitroglycerin doses without relief and finally resolved with fentanyl. Ideally, diagnostic catheterization is required but he also has history of kidney transplant and abnormal creatinine. Discussed with Dr. Stephens; recommendation is [facility] transfer and transplant nephrology consultation. We will also need to review prior kidney function and if any significant change. Based on this, we can plan further cardiac care. For now, continue IV heparin. Aspirin, beta-blockers as per home dosing and statins. Discussed with patient's significant other and they understand the issues and agree with plan of care. Discussed with Dr. Melara. Procedures Date of Service Date of Service: 01/30/24
[2024-01-30 10:33] LABS: Troponin-I High Sensitivity 123.4 ng/L (<3.5-35.0)
[2024-01-30 10:56] LABS: Glucose, Whole Blood 171 mg/dL (60-115)
[2024-01-30] MEDS: Metoprolol Tartrate 25 MG TABLET PO (10:58)
[2024-01-30] MEDS: Atorvastatin Calcium 40 MG TABLET PO (10:58)
[2024-01-30] MEDS: Aspirin 81 MG TAB.CHEW 324 MG PO (10:59)
--- NOTE | 2024-01-30 11:19 | PHA.MEDREC ---
Addendum entered by Jonny Blackman 01/30/24 11:28: reviewed Original Note: Pharmacy Consult ? Medication Reconciliation Pharmacy has completed the medication reconciliation. spoke to patient to confirm med list. Patient confirmed Lantus is 18 units daily and Humalog is 3-5 units per sliding scale TIDWM, Tacrolimus is 2 mg qam and 1 mg qpm. patient says he took 4 tablets of Nitro [place] [facility] [place] [facility] [place]
[2024-01-30 16:54] LABS: PTT Heparin Drip 87.5 SEC (53-77.9)
[2024-01-30 19:31] LABS: Glucose, Whole Blood 349 mg/dL (60-115)
[2024-01-30] MEDS: Insulin Lispro 100 UNIT/ML 3 ML VIAL SUBCUT ×2 (19:38→21:20)
--- NOTE | 2024-01-30 19:46 | PC.NURSE ---
this rn assumed care of pt, pt a&ox4, respirations even and unlabored. pt noted to be in heparin drip 12 U/ kg, this RN and previous RN did bedside check to confirm dose. pt POC noted ot be 349, per sliding scale pt to receive 8U of insulin, pt refusing 8U at this time. Rik MICHELLE aware, okay to give 5U insulin at this time. pt vss. sinus yung 50-54bpm.
[2024-01-30 21:08] LABS: Glucose, Whole Blood 292 mg/dL (60-115)
--- NOTE | 2024-01-30 21:12 | PC.NURSE ---
pharmacy called for 1mg Prograf to be brought down from pharmacy to ED
[2024-01-30] MEDS: Tacrolimus 1 MG CAPSULE PO (21:21)
[2024-01-31 00:20] LABS: Glucose, Whole Blood 44 mg/dL (60-115)
--- NOTE | 2024-01-31 00:20 | PC.NURSE ---
pt poc noted to be 44, aware, pt given sandwich and juice per verbal at this time.
--- NOTE | 2024-01-31 00:20 | MHC.EDTECH ---
Patient blood sugar checked and found to be 44. MD and RN aware. [place] and juice provided and blood sugar will be checked in 15-30 min
[2024-01-31] MEDS: Dextrose 10 % 250 ML 750 ML IV (00:41)
--- NOTE | 2024-01-31 00:41 | PC.NURSE ---
pt POC noted to be 30, dextrose 10% administered at this time. aware.
[2024-01-31 00:42] LABS: Glucose, Whole Blood 30 mg/dL (60-115)
--- NOTE | 2024-01-31 00:44 | PC.NURSE ---
pt denies lightheadedness and sweating, pt is a&ox4, respirations even and unlabored, pt states i feel great .
[2024-01-31 00:53] LABS: Glucose, Whole Blood 225 mg/dL (60-115)
--- NOTE | 2024-01-31 00:53 | PC.NURSE ---
pt POC noted to be 225, aware, plan to hold PO glucose gel. pt instructed to let RN know if he feels symptomatic.
[2024-01-31 01:41] VITALS: BP 146/75; PULSE 64; RESP 16; TEMP 36.6; O2SAT 97
[2024-01-31 01:44] LABS: Glucose, Whole Blood 143 mg/dL (60-115)
[2024-01-31 02:13] LABS: Glucose, Whole Blood 146 mg/dL (60-115)
--- NOTE | 2024-01-31 03:25 | ECG_ITS ---
Test Reason : CHEST PAIN Blood Pressure : / mmHG Vent. Rate : 066 BPM Atrial Rate : 066 BPM P-R Int : 120 ms QRS Dur : 094 ms QT Int : 420 ms P-R-T Axes : 042 029 -59 degrees QTc Int : 440 ms Normal sinus rhythm Cannot rule out Inferior infarct , age undetermined Cannot rule out Anterior infarct (cited on or before 30-JAN-2024) T wave abnormality, consider lateral ischemia Abnormal ECG When compared with ECG of 30-JAN-2024 05:55, Premature ventricular complexes are no longer Present Premature atrial complexes are no longer Present Minimal criteria for Inferior infarct are now Present Referred By: Silvino Box Electronically Signed By:MILLY JEONG
--- NOTE | 2024-01-31 03:31 | ECG_ITS ---
Test Reason : PAIN FREE Blood Pressure : / mmHG Vent. Rate : 069 BPM Atrial Rate : 069 BPM P-R Int : 124 ms QRS Dur : 090 ms QT Int : 404 ms P-R-T Axes : 045 039 056 degrees QTc Int : 432 ms Normal sinus rhythm Cannot rule out Anterior infarct (cited on or before 30-JAN-2024) Abnormal ECG When compared with ECG of 31-JAN-2024 03:25, Lateral T inversion improved Referred By: Silvino Box Electronically Signed By:MILLY JEONG
[2024-01-31 03:35] VITALS: BP 170/74; PULSE 65
[2024-01-31] MEDS: Nitroglycerin 2 % Oint 1 GM Packet 1 INCH TRANSDERMA (03:35)
--- NOTE | 2024-01-31 03:37 | PC.NURSE ---
pt reporting 5/10 midsernal chest pain radiating into his bilateral jaw. aware, nitro administered.
[2024-01-31 03:41] VITALS: RESP 18
[2024-01-31] MEDS: fentaNYL citrate/PF 100 MCG/2 ML VIAL 25 MCG IVPUSH (03:41)
[2024-01-31 04:08] VITALS: BP 137/64; PULSE 65; RESP 15; TEMP 36.6; O2SAT 96
[2024-01-31 04:41] LABS: Troponin-I High Sensitivity 15826.9 ng/L (<3.5-35.0)
--- NOTE | 2024-01-31 04:49 | PC.NURSE ---
pt critical troponin received at this time, 69269.9. aware and at bedside.
--- NOTE | 2024-01-31 04:51 | ECG_ITS ---
Test Reason : REPEAT Blood Pressure : / mmHG Vent. Rate : 069 BPM Atrial Rate : 069 BPM P-R Int : 130 ms QRS Dur : 092 ms QT Int : 394 ms P-R-T Axes : 054 043 086 degrees QTc Int : 422 ms Normal sinus rhythm Cannot rule out Anterior infarct (cited on or before 30-JAN-2024) Abnormal ECG When compared with ECG of 31-JAN-2024 04:46, No significant change was found Referred By: Silvino Box Electronically Signed By:MILLY JEONG
[2024-01-31] MEDS: Acetaminophen 325 MG TABLET 975 MG PO (05:06)
--- NOTE | 2024-01-31 05:08 | PC.NURSE ---
pt medicated per jun for 08/23 headache. per , awaiting cardiology to determine if pt needs higher level [facility] at this time.
[2024-01-31 05:09] LABS: Hematocrit 29.5 % (42.0-52.0); Hemoglobin 9.6 g/dl (14.0-18.0); Mean Corpuscular HGB Conc 32.5 g/dl (31.0-36.0); Mean Corpuscular Hemoglobin 28.8 pg (27.0-33.0); Mean Corpuscular Volume 88.6 fL (80.0-98.0); Mean Platelet Volume 10.8 fL (9.4-12.4); Platelet Count 139 X10*3/uL (160-400); Red Blood Count 3.33 X10*6/uL (4.60-5.80); Red Cell Distribution Width 13.2 % (11.0-16.0); White Blood Count 5.8 X10*3/uL (4.8-10.8)
[2024-01-31 05:16] LABS: INTERNATIONAL NORM RATIO 1.1 (0.9-1.1); Prothrombin Time 12.8 SEC (10.9-12.4)
--- NOTE | 2024-01-31 05:32 | PC.NURSE ---
report given to Callie MCCALL at [facility].
[2024-01-31 05:34] LABS: PTT Heparin Drip 137.6 SEC (53-77.9)
[2024-01-31 05:52] VITALS: BP 132/62; PULSE 70; RESP 20; TEMP 36.6; O2SAT 96
--- NOTE | 2024-01-31 05:52 | PC.NURSE ---
ems at bedside for report.
== END 2024-01-31 05:59 | disposition short-term general hospital (02) ==
PROVIDERS: Emergency Medicine; Internal Medicine Cardiovascular Disease; Emergency Provider Emergency Medicine
DX: I21.4 Non-ST elevation (NSTEMI) myocardial infarction (principal); R07.9 Chest pain, unspecified; E11.9 Type 2 diabetes mellitus without complications; I10 Essential (primary) hypertension; E78.00 Pure hypercholesterolemia, unspecified; Z79.82 Long term (current) use of aspirin; Z79.4 Long term (current) use of insulin; Z79.899 Other long term (current) drug therapy; Z94.0 Kidney transplant status; Z79.02 Long term (current) use of antithrombotics/antiplatelets
CPT/HCPCS: 36415; 71045; 80053; 82947; 84484; 85025; 85027; 85610; 85730; 93005; 96365; 96375; 96376; 99285; 99291; 99292; J1644; J3010

== ENCOUNTER → 2024-01-30 06:41 | Outpatient (BNV) | payer OTHER, SELFPAY | PROVIDERS: Emergency Provider Emergency Medicine; Visit Provider Internal Medicine | DX: I20.0 Unstable angina (principal) | CPT/HCPCS: 93010; 99285 ==

== ENCOUNTER → 2024-01-31 03:31 | Outpatient (BNV) | payer OTHER, SELFPAY | PROVIDERS: Emergency Provider Emergency Medicine; Visit Provider Internal Medicine | DX: R94.31 Abnormal electrocardiogram [ECG] [EKG] (principal) | CPT/HCPCS: 93010 ==